=== PATIENT | female | born 1935 | race Caucasian/White ===

== ENCOUNTER 2019-03-31 11:10 | Inpatient (IN) ==
[2019-03-31 12:12] LABS: BASO# 0.06 X1000 (0.0-0.2); BASO% 0.4 % (0.0-0.8); EOS# 0.58 X1000 (0.0-0.7); EOS% 4.1 % (0.0-10.0); HEMATOCRIT 39.4 % (37.0-47.0); HEMOGLOBIN 13.2 g/dL (12.0-16.0); IMM GRAN# 0.13 X1000 (0.0-0.04); IMM GRAN% 0.9 % (0.0-0.5); LYMPH# 1.67 X1000 (1.2-3.4); LYMPH% 11.9 % (20.5-51.1); MCH 31.4 PG (27-31); MCHC 33.5 g/dL (33-37); MCV 93.6 FL (81-99); MONO# 1.24 X1000 (0.11-0.59); MONO% 8.8 % (1.7-9.3); MPV 10.2 FL (7.4-10.4); NEUT# 10.39 X1000 (1.4-6.5); NEUT% 73.9 % (42.2-75.2); PLT 266 X1000 (130-400); RBC 4.21 XMIL (4.2-5.4); RDW 14.7 % (11.5-14.5); WBC 14.07 X1000 (4.8-10.8)
--- NOTE | 2019-03-31 12:14 | Diag Imaging Result Doc PS360 ---
EXAM: CT ABDOMEN/PELVIS W/O CONTRAST 03/31/2019 HISTORY: abdominal pain TECHNIQUE: This exam was performed using automated exposure control, adjustment of mA or kV according to patient size, and/or use of iterative reconstruction technique. COMMENT: There are no previous studies available for comparison. There are bilateral pleural effusions. There is atelectasis versus pneumonia in both lower lobes. There are no apparent gallstones. There is no evidence of nephrolithiasis or hydronephrosis. The abdominal aorta is not distended. There is an abnormal fluid collection posterior to the ascending colon along the inferior lateral portion of Gerota's fascia which is apparently related to an appendiceal abscess. This measures 2.3 cm in AP dimension. The distal appendix is markedly distended. There is diverticulosis in the descending colon and sigmoid without evidence of active diverticulitis. There is a large amount of stool in the rectum. There has been right hip arthroplasty. There are degenerative disc and facet changes in the lumbar spine. IMPRESSION: Bilateral pleural effusions and bibasilar atelectasis versus pneumonia. Distended appendix and probable appendiceal abscess. The possibility of a neoplastic process in the appendix cannot be entirely excluded. Fecal impaction. Electronically signed by Evert Dietrich 03/31/2019 12:12 PM
[2019-03-31] MEDS ORDERED: MAXIPIME 2 GM in NS 100 ML IV ONE (12:33)
[2019-03-31 12:38] LABS: AGAP 14; ALBUMIN 3.3 g/dL (3.5-5.0); ALKALINE PHOSPHATASE 64 U/L (32-104); AMYLASE 44 U/L (20-200); BUN 17 mg/dL (8-22); CALCIUM 8.4 mg/dL (8.8-10.2); CHLORIDE 94 mmol/L (98-107); COSMO 270; CREATININE 0.5 mg/dL (0.5-0.9); ESTIMATED GFR > 60; GLUCOSE 105 mg/dL (70-104); GOT 25 U/L (10-30); GPT 17 U/L (10-36); LIPASE 28 U/L (13-60); POTASSIUM 3.2 mmol/L (3.5-5.1); SODIUM 134 mmol/L (136-145); TCO2 26 mmol/L (25-35); TOTAL BILIRUBIN 0.74 mg/dL (0.20-1.00); TOTAL PROTEIN 6.5 g/dL (6.3-8.3)
--- NOTE | 2019-03-31 12:50 | PROVIDER DOCUMENTATION ---
This chart was entered by Jerilyn Wright Scribe, acting as scribe for Alie Ngo MD. HPI-Abdominal Pain/GI Problem - General Chief Complaint: Abdominal Pain Stated Complaint: ABD Pain Time Seen by Provider: 03/31/19 11:34 Source: family Allergies/Adverse Reactions: Patient Allergies Allergy/AdvReac Type Severity Reaction Status Date / Time morphine AdvReac Unknown Verified 06/05/17 08:39 Home Medications: Home Medication List Medication Instructions Recorded Confirmed Last Taken Type Cholecalciferol (Vitamin D3) 2,500 unit PO DAILY 04/08/12 03/31/19 02/21/14 06:00 History [Vitamin D3] Levothyroxine [Synthroid] 1 mcg PO DAILY 04/08/12 03/31/19 02/21/14 06:00 History Donepezil [Aricept] 10 mg PO QHS 06/05/17 03/31/19 Unknown History Cyanocobalamin (Vitamin B-12) 1 cap PO DAILY 03/31/19 03/31/19 Unknown History [Vitamin B-12] Docusate Sodium [Colace] 250 mg PO BID 03/31/19 03/31/19 Unknown History Furosemide [Lasix] 1 tab PO DAILY 03/31/19 03/31/19 Unknown History Memantine HCl 1 tab PO BID 03/31/19 03/31/19 Unknown History Multivit-Min/Iron/Folic/Lutein 1 tab PO DAILY 03/31/19 03/31/19 Unknown History [Multivitamin Women 50 Plus Tab] Nitrofurantoin Monohyd/M-Cryst 1 cap PO BID 03/31/19 03/31/19 Unknown History [Nitrofurantoin Chugach-Mcr 100 mg] Pravastatin Sodium 1 tab PO QHS 03/31/19 03/31/19 Unknown History Selenium 1 tab PO DAILY 03/31/19 03/31/19 Unknown History - History of Present Illness-ABD Nature of Presenting Problems: Patient is a 83 year old female who presents to the ED via EMS with RUQ abdominal pain. Daughter states loss of appetite and lethargy. Daughter reports patient is currently on Marcobid for an UTI. Daughter denies patient having nausea and vomiting. Abdominal Pain Onset Location: reports: RUQ Pain Radiation: reports: no radiation Quality of Pain: reports: aching Severity in ED: reports: mild Onset/Duration: reports: gradual Timing: reports: still present, getting worse Activities at Onset: reports: light activity Associated Symptoms: reports: loss of appetite, other (lethargy) Bruising or Bleeding Gums?: No Similar Symptoms Previously?: Yes Recently seen or treated by another doctor?: No Review of Systems - Adult - REVIEW OF SYSTEMS - ADULT ROS:: ROS per family (daughter) Constitutional: reports: no symptoms reported. denies: chills, fever, fatique Eyes: reports: no symptoms reported Ears, Nose, Mouth & Throat: reports: no symptoms reported Cardiovascular: reports: no symptoms reported Respiratory: reports: no symptoms reported Gastrointestinal: reports: see HPI, abdominal pain (RUQ), poor appetite. de nies: nausea, vomiting Genitourinary: reports: no symptoms reported Musculoskeletal: reports: no symptoms reported Integumentary: reports: no symptoms reported Neurological: reports: see HPI, other (lethargy). denies: headache/migraines, syncope Psychiatric: reports: no symptoms reported Endocrine: reports: no symptoms reported Hematologic/Lymphatic: reports: no symptoms reported Allergic/Immunologic: reports: no symptoms reported All Other Systems: Reviewed and Negative Past History - Adult - PAST MEDICAL HISTORY-ADULT Review of Records: reports: Old Records Reviewed, Nursing Assessment Review, Medications Reviewed, Social history reviewed & non-contributory. Major Childhood Illnesses: reports: denies history Cardiovascular: reports: denies history Respiratory: reports: denies history Gastrointestinal: reports: denies history Obstetrical/Gynecological: reports: denies history Genitourinary: reports: denies history Musculoskeletal: reports: denies history Neurological: reports: dementia Psychiatric: reports: denies history Endocrine/Immune: reports: thyroid disorder Other Conditions: reports: denies history - PRIOR SURGERIES/PROCEDURES Surgical/Procedure History: reports: joint replacement (total knee and total hip), back/neck - IMMUNIZATION STATUS Childhood Immunizations: See Nurse Assessment Flu Vaccine: See Nurse Assessment - FAMILY HISTORY Family History: reviewed, not pertinent - SOCIAL HISTORY Smoking: denies Substance Use: denies Physical Exam-General - PHYSICAL EXAM-ADULT Initial Vital Signs Reviewed: Yes - CONSTITUTIONAL General Appearance: alert, no apparent distress, slow to respond. negative: obtunded - HEAD, EARS, NOSE, MOUTH & THROAT HENMT: normocephalic/atraumatic, moist mucous membranes. negative: angioedema - RESPIRATORY Respiratory: chest non-tender, lungs clear, normal breath sounds. negative: crackles, stridor, wheezing - CARDIOVASCULAR Cardiovascular: normal peripheral pulses, regular rate, rhythm. negative: tachycardia - GASTROINTESTINAL (ABDOMEN) Abdominal Exam: normal bowel sounds, soft, guarding, tenderness (RUQ). negative: distended - MUSCULOSKELETAL Extremity: normal inspection. negative: deformity, erythema, pedal edema - SKIN Integumentary: normal color, normal turgor, warm/dry. negative: diaphoresis, jaundice, rash - PSYCHIATRIC Psych/Mental Status: other (slow to respond). negative: anxious, paranoid Progress - PLAN OF CARE/RESULTS Progress/Plan/Lab Results: Vital Signs - 8 hr 03/31/19 11:23 Temperature 98.2 F Pulse Rate 92 H Respiratory Rate 18 Blood Pressure 120/66 O2 Sat by Pulse Oximetry 94 L 1232 - Tech paged Dr. Jett but Dr. Jett is in the OR and is aware of the patient. Result Diagrams: 03/31/19 11:49 03/31/19 11:49 - CT/MRI 1 CT Study: Abdomen, Pelvis Impression: See EMR Report (EXAM: CT ABDOMEN/PELVIS W/O CONTRAST 03/31/2019 HISTORY: abdominal pain TECHNIQUE: This exam was performed using automated exposure control, adjustment of mA or kV according to patient size, and/or use of iterative reconstruction technique. COMMENT: There are no previous studies available for comparison. There are bilateral pleural effusions. There is atelectasis versus pneumonia in both lower lobes. There are no apparent gallstones. There is no evidence of nephrolithiasis or hydronephrosis. The abdominal aorta is not distended. There is an abnormal fluid collection posterior to the ascending colon along the inferior lateral portion of Gerota's fascia which is apparently related to an appendiceal abscess. This measures 2.3 cm in AP dimension. The distal appendix is markedly distended. There is diverticulosis in the descending colon and sigmoid without evidence of active diverticulitis. There is a large amount of stool in the rectum. There has been right hip arthroplasty. There are degenerative disc and facet changes in the lumbar spine. IMPRESSION: Bilateral pleural effusions and bibasilar atelectasis versus pneumonia. Distended appendix and probable appendiceal abscess. The possibility of a neoplastic process in the appendix cannot be entirely excluded. Fecal impaction. Electronically signed by Evert Dietrich 03/31/2019 12:12 PM 03/31/19 1212 Interpreting Physician: Evert Dietrich MD Dictated Date/Time: 03/31/19 1209 cc: Alie Ngo MD; Cresencio Fagan MD) - CONSULTS/PCP/HOSPITALIST Notification #1 *Consult/PCP/Hospitalist*: Dr. Jett Time Discussed: 13:27 Reason/Comments: Dr. Ngo consulted with Dr. Jett about patient. Consult Disposition: other (Dr. Jett states he will contact radiology to do a percutaneous drainage of abscess. States have hospitalist admit and he will consult on patient.) #2 Consult: JUSTO Carter for Hospitalist Time Discussed: 13:39 Reason/Comments: Dr. Ngo consulted with Emma about patient. Departure - Departure Date of Disposition Decision: 03/31/19 Time of Disposition Decision: 12:48 DIAGNOSIS: Appendiceal abscess, Fecal impaction Disposition: ADMITTED INPATIENT 09 Certified Medical Emergency: Emergent Condition: Good Referrals and Follow-Ups: Cresencio Fagan MD [Primary Care Provider] - - Critical Care Note This patient required my direct & personal management of CC.: No Attestation - Physician/ TOYA Attestation Patient care was provided by Advanced Practice Provider:: No The physician spent face to face time with patient:: Yes Advanced Practice Provider documentation review:: Supervising physician onsite and consulted in the evaluation and care of this patient. The physician did have a face to face encounter with the patient. This chart was documented by the indicated scribe, (Jerilyn Wright Scribe) and accurately reflects the services I performed and decisions made by me, Alie Ngo MD, as attested by the provider's signature.
[2019-03-31 12:54] LABS: INR 1.19; PROTIME 15.3 Seconds (11.0-16.0)
[2019-03-31 12:55] LABS: PTT 33.2 Seconds (22.3-41.8)
[2019-03-31 13:15] LABS: URINE SOURCE CATH
[2019-03-31 13:24] LABS: BILIRUBIN URINE NEGATIVE (NEGATIVE); BLOOD URINE SMALL (NEGATIVE); COLOR YELLOW; GLUCOSE URINE NEGATIVE (NEGATIVE); KETONE URINE 40 mg/dL (NEGATIVE); LEUKOCYTES URINE LARGE (NEGATIVE); NITRITE URINE NEGATIVE (NEGATIVE); PH URINE 6.5; PROTEIN URINE 30 mg/dL (NEGATIVE); SP GRAVITY URINE 1.014; TURBIDITY URINE HAZY (CLEAR); UROBILINOGEN URINE NORMAL (NORMAL)
[2019-03-31 13:26] LABS: UR EPITHELIAL CELLS <10 /HPF (<10); URINE BACTERIA 1+ /HPF; URINE RBC <10 /HPF (<10); URINE WBC TNTC /HPF (<10)
[2019-03-31] MEDS ORDERED: DEMEROL IV PRN (14:59)
[2019-03-31] MEDS ORDERED: ZOFRAN IV PRN (14:59)
--- NOTE | 2019-03-31 15:20 | Diag Imaging Result Doc PS360 ---
EXAM: CT DRAIN ABDOMEN ABSCESS W/IMG 03/31/2019 HISTORY: appendiceal abscess TECHNIQUE: CT-guided abscess drainage COMMENT: The benefits and risks of the procedure including the possibility of bleeding, infection, perforation of hollow viscus or reaction to lidocaine was discussed with the patient's daughter and she agreed to the procedure. Following sterile preparation of the skin and administration 1% lidocaine to the skin and deeper soft tissues, a 10-Hebrew pigtail catheter was inserted by trocar technique into the abscess which has been previously described adjacent to the appendix, and the purulent drainage was obtained. A sample was sent to the laboratory for bacteriological studies. The catheter was secured with its cope loop and with the adhesive device to the skin. There are no immediate complications. IMPRESSION: Successful CT-guided abscess drainage. Electronically signed by Evert Dietrich 03/31/2019 3:18 PM
--- NOTE | 2019-03-31 15:46 | EKG Report ---
Test Performed on : 03/31/2019 3:36:23 PM Test Reason : pre sx Blood Pressure : / mmHG Vent. Rate : 084 BPM Atrial Rate : 084 BPM P-R Int : 182 ms QRS Dur : 088 ms QT Int : 374 ms P-R-T Axes : 056 017 069 degrees QTc Int : 441 ms Normal sinus rhythm. Nonspecific T wave abnormality Abnormal ECG When compared with ECG of 21-FEB-2014 12:08, No significant change was found Confirmed by Min Mendez MD ([id number]) on 04/01/2019 7:45:08 AM
[2019-03-31] MEDS: NS + KCL 20 MEQ 1,000 ML IV SCH (15:48)
--- NOTE | 2019-03-31 17:30 | HISTORY AND PHYSICAL ---
PRIMARY CARE PROVIDER: Dr. Cresencio Fagan GENERAL SURGEON: Dr. Jett. CHIEF COMPLAINT: Abdominal pain. HISTORY OF PRESENT ILLNESS: Ms. Cruz is an 83-year-old female who carries a past medical history of vitamin D deficiency, hypothyroidism, chronic osteoarthritis, high cholesterol, dementia, mitral valve prolapse, a spiral fracture on her right femur. She only gets up with a Ree lift to a wheelchair. Daughter at bedside reports that she has had abdominal pain to her right upper quadrant, and has been lethargic ongoing for a week, but however, increased lethargy over the past few days. She was brought to the ED, and the abdomen and pelvis CT was obtained that showed bilateral pleural effusions, bibasilar atelectasis versus pneumonia, distended appendix with a probable appendices abscess, and the possibility of a neoplastic process in the appendix could not entirely be excluded, and a fecal impaction. She then underwent a successful CT-guided abscess drainage with samples taken and sent off for studies. The catheter was secured and left in place to drain, and placed on antibiotics with cefepime as well as normal saline with KCl for a lower potassium. We will continue with further management and treatment. PAST MEDICAL HISTORY: 1. Dementia. 2. Mitral valve prolapse. 3. Right femur spiral fracture for which the patient does not walk. She gets up with a Ree lift, and sits in a wheelchair. 4. Osteoarthritis. 5. Thyroid disease. 6. Vitamin D deficiency. 7. High cholesterol. PAST SURGICAL HISTORY: 1. Back surgery. 2. Total hip and knee placement on the right. REVIEW OF SYSTEMS: Twelve-point review of systems completely negative except for those mentioned in HPI. PHYSICAL EXAMINATION: VITAL SIGNS: Temperature 98.3 degrees, heart rate 68, respirations 20, blood pressure 117/60, and O2 is 94% on room air. GENERAL: Ms. Cruz is a pleasant, 83-year-old, female who is lying in the bed in no acute distress after her procedure. HEENT: Atraumatic, normocephalic. PERRL. NECK: Supple. Trachea midline. CARDIOVASCULAR: S1, S2 appreciated. No murmurs, gallops, rubs noted. RESPIRATORY: Lungs clear bilaterally. GASTROINTESTINAL: Soft. Does not appear to be tender. Positive bowel sounds 4 quadrants. EXTREMITIES: Lower extremities negative for edema. Daughter is concerned about a right toe that was reddened, and she felt was infected last week. It is slightly reddened now, but no purulent drainage. NEUROLOGIC: She is awake, alert, and oriented to name, date of , and place. No focal deficits noted some. LABORATORY DATA: White count 14, hemoglobin and hematocrit 13 and 39, and platelet count 266,000. Sodium 134, potassium 3.2, BUN 17, and creatinine 0.5. Blood glucose is 105. Urinalysis showed 1+ bacteria. Negative for nitrates. Too numerous to count WBCs. ASSESSMENT AND PLAN: 1. Probable appendiceal abscess that has now been drained. Will be followed by Dr. Jett. Continue IV antibiotics. 2. Fecal impaction. Unsure if Dr. Jett will want her disimpacted with colonoscopy this admission or as an outpatient basis. 3. Urinary tract infection that was currently being treated. I believe with Macrodantin by her primary care doctor. We will continue with IV antibiotics. 4. Dementia. 5. Hypothyroidism. 6. Chronic osteoarthritis. 7. Right spiral fracture on her femur. The patient does get up with Ree lift and sits in a wheelchair. She is nonweightbearing. 8. Hypokalemia. We will continue with IV fluids with KCl. Recheck morning labs. 9. Further recommendation to follow physician evaluation, laboratory and diagnostic data. Dictated by JUSTO Kerns for Stephane Evans MD cc: Stephane Evans MD
[2019-03-31] MEDS ORDERED: TYLENOL PO PRN (17:44)
[2019-03-31] MEDS ORDERED: GLYCERIN ADULT PR ONE (17:51)
[2019-03-31] MEDS: FLAGYL 500 MG/NS 500 MG/100 ML IVPB IV SCH ×2 (18:04→23:38)
--- NOTE | 2019-03-31 18:36 | HISTORY AND PHYSICAL ---
ADDENDUM: Today, Ms. Cruz has been seen and evaluated. She actually went for a CT-guided periappendix abscess drainage. She came in this morning because of abdominal pain and investigations revealed an appendix abscess which was drained early on today. Now, she is feeling a lot better, but she is just feeling some chills. PHYSICAL EXAMINATION: VITAL SIGNS: Her current vitals: Blood pressure is 150/66, pulse of 90, respirations 20, temperature is 100.3 degrees. GENERAL: Ms. Cruz is an 83-year-old elderly female. She was in bed. She did not seem to be in any distress. HEENT: Mucosa is pink and moist. Anicteric and acyanotic. NECK: Supple. CHEST: Clear. CARDIOVASCULAR: Regular rate and rhythm. ABDOMEN: Soft. There is a RITIKA drain on the right lateral lower abdomen. EXTREMITIES: No pedal edema. Ms. Cruz, had a previous left hip surgery and total knee replacement. I understand she is most times bed-bound and wheelchair and recliner bound. She gets transfer by Ree lift. LABORATORY DATA: WBC is 14.077. Hemoglobin and platelet within normal range. Chemistry is also reviewed. Potassium and sodium are slightly low. Plasma lactate is normal. ASSESSMENT: 1. Possible appendiceal abscess. The patient is status post CT-guided drainage. We are waiting on the culture. 2. Sepsis, secondary to intraabdominal abscess. Cultures have been done. Abscess has been drained. The patient has been started on cefepime and vancomycin. I have added metronidazole for anaerobe coverage. 3. Hypothyroidism. 4. History of right femur spiral fracture. As I said, patient is wheelchair bound and bed-bound. Transfers with a Ree lift. 5. Fecal impaction. Will continue bowel regimen. Please refer to the details of the History and Physical which has been dictated in the chart by the CLIENT SERVER PROGRAMMER. cc: Stephane Evans MD
--- NOTE | 2019-03-31 18:46 | GENERAL SURGERY CONSULTATION ---
DATE: 03/31/2019 REASON FOR CONSULTATION: Appendicitis with abscess. HISTORY OF PRESENT ILLNESS: This is an 83-year-old female with chronic dementia who lives at home and has a caregiver who has noted increasing lethargy and 1 episode of fever last week. She has also had some tenderness on the right side of her abdomen that has become more prominent over the last few days. Initially, which initially she was thought to have a UTI. She was treated with antibiotics. The fever subsided last week, but her tenderness did not improve, so she was brought to the hospital for evaluation in the emergency room. The workup has included a CBC with to me the workup has included an CT scan, which shows a distended appendix with a periappendiceal abscess which is somewhat retrocecal over Gerota's fascia. The distal appendix is very distended. There is also bilateral pleural effusions and basilar atelectasis versus pneumonia. There is also fecal impaction. PAST MEDICAL HISTORY: Dementia, mitral valve prolapse, chronic UTIs, osteoarthritis, degenerative joint disease, history of T12 compression fracture, hypothyroidism. ALLERGIES: Morphine. PAST SURGICAL HISTORY: No abdominal surgery. SOCIAL HISTORY: Negative for tobacco, alcohol or illicit drug use. HOME MEDICATIONS: Vitamin D3, Synthroid, Aricept, vitamin B12, Colace, Lasix, memantine, nitrofurantoin, pravastatin, selenium. FAMILY HISTORY: Reviewed and noncontributory. REVIEW OF SYSTEMS: Ten systems reviewed and are negative except as noted above. In addition, she has had loss of appetite. PHYSICAL EXAMINATION: Vital Signs: Temperature 98.2 degrees, pulse 80s to 90s, blood pressure 137/69, O2 saturation 96%. General: Well-developed elderly female in no distress who looks her stated. HEENT: Normocephalic, atraumatic. Extraocular muscles intact. Pupils equal, round, reactive to light. Sclerae anicteric. Moist mucous membranes. Neck: Supple. No thyromegaly. CV: Regular rate and rhythm. Respiratory: Bilateral breath sounds. No work of breathing. Gastrointestinal: Soft, nondistended. No organomegaly or mass. She is tender in the right lower quadrant. No rebound. She does have some guarding if you push on her right lower quadrant. Extremities: No clubbing, cyanosis, or edema. Skin: Warm and dry. No rash. Musculoskeletal: Moves all extremities equally and well. LABORATORY: White blood cell count 14,000. Hemoglobin 13, hematocrit 39. Electrolytes reviewed and are unremarkable. Urinalysis does show leukocytes and 1+ bacteria but negative nitrite. IMAGING: As described in HPI. ASSESSMENT AND PLAN: An 83-year-old female with acute appendicitis with focal contained abscess. The abscess is somewhat retroperitoneal in nature. She does not have free air. She does not appear to have generalized peritonitis. Given her age, comorbidities, and the hemodynamic stability, I would favor initial conservative treatment with percutaneous drainage and IV antibiotics. If she responds to this, then we could discharge her home in a few days on oral antibiotics with follow up my office. We would plan a future colonoscopy followed by interval appendectomy in 6 to 8 weeks. I discussed this with her and her family. They understand and agree to proceed in this manner. cc: Hayden Jett MD
[2019-04-01] MEDS: MAXIPIME 2 GM in NS 100 ML IV SCH ×2 (01:05→14:30)
[2019-04-01] MEDS: NS + KCL 20 MEQ 1,000 ML IV SCH ×2 (01:05→11:54)
--- NOTE | 2019-04-01 06:12 | GENERAL SURGERY PROGRESS NOTE ---
DATE: 04/01/2019 SUBJECTIVE: The patient denies abdominal pain, nausea or vomiting. OBJECTIVE: Vital Signs: She is afebrile. Vital signs are stable. General: She is awake, alert and oriented x3. No acute distress. GI: Soft. Focally tender in the right lower quadrant. No generalized peritoneal irritation. Nondistended. LABORATORY DATA: Pending. ASSESSMENT AND PLAN: An 83-year-old female with acute appendicitis and periappendiceal abscess. She is hemodynamically stable. We are treating this conservatively. She is status post percutaneous drainage. She is on IV antibiotics. We are awaiting results of the culture. If she shows improvement over the next couple of days I anticipate discharge home on oral antibiotics and follow up with me as an outpatient. cc: Hayden Jett MD
[2019-04-01] MEDS: FLAGYL 500 MG/NS 500 MG/100 ML IVPB IV SCH ×3 (06:45→17:41)
[2019-04-01] MEDS: SYNTHROID PO SCH ×2 (06:46→08:45)
[2019-04-01 07:34] LABS: BASO# 0.04 X1000 (0.0-0.2); BASO% 0.5 % (0.0-0.8); EOS# 0.54 X1000 (0.0-0.7); EOS% 6.1 % (0.0-10.0); HEMATOCRIT 34.5 % (37.0-47.0); HEMOGLOBIN 11.4 g/dL (12.0-16.0); IMM GRAN% 1.1 % (0.0-0.5); LYMPH# 0.71 X1000 (1.2-3.4); LYMPH% 8.1 % (20.5-51.1); MCH 31.3 PG (27-31); MCV 94.8 FL (81-99); MONO# 0.54 X1000 (0.11-0.59); MONO% 6.1 % (1.7-9.3); MPV 10.7 FL (7.4-10.4); NEUT# 6.86 X1000 (1.4-6.5); NEUT% 78.1 % (42.2-75.2); PLT 237 X1000 (130-400); RBC 3.64 XMIL (4.2-5.4); RDW 14.8 % (11.5-14.5); WBC 8.79 X1000 (4.8-10.8)
[2019-04-01 07:57] LABS: AGAP 12; ALB/GLOB RATIO 0.9; ALBUMIN 2.6 g/dL (3.5-5.0); ALKALINE PHOSPHATASE 56 U/L (32-104); BUN 13 mg/dL (8-22); CALCIUM 8.2 mg/dL (8.8-10.2); CHLORIDE 100 mmol/L (98-107); COSMO 270; CREATININE 0.6 mg/dL (0.5-0.9); ESTIMATED GFR > 60; GLUCOSE 91 mg/dL (70-104); GOT 21 U/L (10-30); GPT 15 U/L (10-36); MAGNESIUM 1.7 mg/dL (1.5-2.7); POTASSIUM 3.5 mmol/L (3.5-5.1); SODIUM 135 mmol/L (136-145); TCO2 23 mmol/L (25-35); TOTAL BILIRUBIN 0.38 mg/dL (0.20-1.00); TOTAL PROTEIN 5.6 g/dL (6.3-8.3)
[2019-04-01 08:07] LABS: BANDS 3 % (0-1); EOS 2 % (1-10); LARGE PLATELETS OCCASIONAL; LYMPHS 4 % (21-51); MONO 3 % (1-9); SEGS 88 % (42-75)
[2019-04-01] MEDS: MIRALAX PO SCH (08:47)
[2019-04-01] MEDS ORDERED: SYNTHROID PO SCH (09:00)
--- NOTE | 2019-04-01 16:29 | PROGRESS NOTE ---
DATE: 04/01/2019 SUBJECTIVE: This morning Ms. Cruz referred to be doing a whole lot better. There were about 4 different family members at the bedside at the time of the encounter. OBJECTIVE: Vital signs: Blood pressure is 122/56, pulse of 91, respirations 16, temperature is 98.4 degrees. General: Ms. Cruz is an 83-year-old female. She was in bed, not seemingly distress. HEENT: Mucosa was pink. Still slightly dry. Anicteric. Acyanotic. Neck: Supple. Chest: Clear to auscultation. Cardiovascular: Regular rate and rhythm. Abdomen: Soft. There is a RITIKA drain to the right lateral abdomen. FOOD SERVICE ORDER CLERK: Patient was awake, alert, and oriented. LABORATORY DATA: CBC shows mild normocytic anemia. White cell count has normalized. Chemistry is normal. So far, urine culture is showing gram-negative robin. The abdomen is also showing gram- negative robin. MEDICATIONS: Have been reviewed. She continues to be on cefepime and metronidazole for now. ASSESSMENT: 1. Sepsis secondary to intra-abdominal abscess. Patient is status post I D. Blood cultures showing gram-negative robin from the cultures. We are pending the ID and sensitivity. 2. Possible appendiceal abscess, status post drain. 3. Gram-negative robin urinary tract infection. Patient is on antimicrobial coverage. 4. Hypothyroidism. 5. History of right femur spiral fracture. The patient is currently wheelchair bound and bed bound, uses a Ree lift for transfers. Fecal impaction. We will continue with bowel regimen. PLAN: So in general, Ms. Cruz is hemodynamically stable. She has been afebrile for today. She is more alert and more communicative. She denies any chills. The culture from the urine and the abscess is showing gram-negative orbin. We are pending the ID and sensitivity to tailor the antibiotics accordingly. cc: Stephane Evans MD
[2019-04-02] MEDS: FLAGYL 500 MG/NS 500 MG/100 ML IVPB IV SCH ×2 (00:22→06:49)
[2019-04-02] MEDS: NS + KCL 20 MEQ 1,000 ML IV SCH ×4 (00:22→23:57)
[2019-04-02] MEDS: MAXIPIME 2 GM in NS 100 ML IV SCH ×2 (01:24→19:32)
[2019-04-02 06:30] LABS: HEMATOCRIT 35.3 % (37.0-47.0); HEMOGLOBIN 11.7 g/dL (12.0-16.0); MCH 31.6 PG (27-31); MCHC 33.1 g/dL (33-37); MCV 95.4 FL (81-99); MPV 10.2 FL (7.4-10.4); RBC 3.7 XMIL (4.2-5.4); RDW 14.8 % (11.5-14.5); WBC 8.91 X1000 (4.8-10.8)
[2019-04-02 06:54] LABS: AGAP 13; ALBUMIN 2.6 g/dL (3.5-5.0); BUN 9 mg/dL (8-22); CALCIUM 8.4 mg/dL (8.8-10.2); CHLORIDE 103 mmol/L (98-107); COSMO 276; CREATININE 0.4 mg/dL (0.5-0.9); ESTIMATED GFR > 60; GLUCOSE 93 mg/dL (70-104); PHOSPHORUS 2.7 mg/dL (2.7-4.5); POTASSIUM 3.5 mmol/L (3.5-5.1); SODIUM 139 mmol/L (136-145); TCO2 23 mmol/L (25-35)
[2019-04-02] MEDS: MIRALAX PO SCH (08:54)
[2019-04-02] MEDS: SYNTHROID PO SCH (08:59)
--- NOTE | 2019-04-02 14:57 | Diag Imaging Result Doc PS360 ---
CT ABD/PELVIS W/IV CONT ONLY - 04/02/2019 INDICATION: abdomen pain, recently drained abcess COMPARISON: 03/31/2019 FINDINGS: There is cardiomegaly. There are trace bilateral pleural effusions. There is some mild atelectasis in the lung bases. There is a pigtail catheter in the right lower quadrant in the region of the appendiceal tip. Essentially all of the drainable fluid has been drained. There is still some inflammatory edema here. No free air or free fluid. No other abnormalities. IMPRESSION: Successful drainage of the tiny right lower quadrant abscess. This exam was performed using automated exposure control, adjustment of mA or kV according to patient size, and/or use of iterative reconstruction technique Electronically signed by Shahram Sarabia 04/02/2019 2:55 PM
[2019-04-02] MEDS ORDERED: NORCO-7.5 PO PRN (14:59)
[2019-04-02] MEDS ORDERED: LACTULOSE PO PRN (15:10)
--- NOTE | 2019-04-02 15:55 | PROGRESS NOTE ---
DATE: 04/02/2019 SUBJECTIVE: This morning, Ms. Cruz referred to be hurting more in the abdomen. The healthcare provider and the were all at the bedside and they were very concerned about her abdominal pain. OBJECTIVE: Vital signs: Blood pressure is 132/56, pulse of 90, respirations 24, temperature is 98 degrees. The patient was saturating 97% on room air. General: Ms. Cruz is an 83-year- old female. She is in bed, in no distress. HEENT: Mucosa was pink and moist. Anicteric. Acyanotic. Neck: Supple. Chest: Good air entry bilateral. There was no crepitations. No rhonchi. Cardiovascular: Regular rate and rhythm. No murmurs, no rubs, no gallops Gastrointestinal: Abdomen soft, minimally tender around the right flank and lower abdomen, but there was no guarding, no rebound. LABORATORY DATA: WBC is normal. There is some mild normocytic anemia. Chemistry is completely within normal range. The patient's albumin is 2.6. So far, the abdominal abscess culture shows no anaerobes. But there is Klebsiella oxytoca which is pansensitive. The urine has also grown Proteus mirabilis, which is pansensitive. Blood cultures have been 48 hours negative. Because of the abdominal pain, I did order a CT scan of the abdomen. At the time of the dictation the report is out and it shows that there is a successful drain of the tiny right lower quadrant abscess. There is still some inflammatory edema there, but otherwise the abscess is completely drained. ASSESSMENT: 1. Severe sepsis on admission secondary to intra-abdominal abscess. The patient is status post CT-guided drain. The RITIKA drain is still in place, minimally has anything and on follow-up CT scan is completely gone. 2. Intra-abdominal abscess, questionable for appendiceal abscess. The patient has a drain. Culture shows Klebsiella oxytoca, which is sensitive to oral Levaquin. We have transitioned the patient to that. 3. Proteus mirabilis urinary tract infection. This is also sensitive to the Levaquin. 4. Hypothyroidism. Patient is on supplements. 5. Severe constipation with fecal impaction. We will continue with bowel regimen. 6. History of right femur spiral fracture. The patient is wheelchair and bed bound. Uses a Ree lift for transfers. In general, I think Ms. Cruz is doing a lot better. Her white cell count has normalized. She has not had any more fever and her cultures have come back pathogens that are sensitive to oral antibiotics. There was a lot of concern this morning about abdominal pain which CT scan has shown almost resolution of the abscess. We are going to switch Ms. Cruz to oral Levaquin. I have also discontinue the metronidazole since anaerobes were negative. I think Ms. rCuz will need to be on antibiotics for 14 days and then eventually follow up with both GI and Surgery as outpatient. We will re-evaluate Ms. Cruz's pain tomorrow and see how it is. She is a potential discharge tomorrow. cc: Stephane Evans MD
[2019-04-02] MEDS: LEVAQUIN PO SCH (16:02)
--- NOTE | 2019-04-02 18:36 | GENERAL SURGERY PROGRESS NOTE ---
DATE: 04/02/2019 SUBJECTIVE: The patient feels a lot better. She denies abdominal pain right now. She did hurt earlier today, but felt better after Demerol. No nausea or vomiting. She ate a good lunch. OBJECTIVE: Vital Signs: She is afebrile. Vital signs are stable. General: She is awake, alert, oriented x3. No acute distress. LABORATORY: White blood cell count 8.9, electrolytes reviewed and unremarkable. ASSESSMENT AND PLAN: An 83-year-old female with probable appendicitis and periappendiceal abscess. She seems to be responding to our management, which has included IV antibiotics and percutaneous CT-guided drainage. The family is uncomfortable going home at this time given her age, mobility issues, and a new home health nurse coming out this weekend. A repeat CT scan was done today. The report is pending. I will plan continued antibiotics over the weekend removal of the drain on Friday and discharge home with Levaquin and Flagyl for another week. We are then planning future colonoscopy and appendectomy in about 6 weeks. cc: Hayden Jett MD
[2019-04-03] MEDS: NS + KCL 20 MEQ 1,000 ML IV SCH ×2 (04:56→13:24)
[2019-04-03] MEDS: SYNTHROID PO SCH (06:46)
--- NOTE | 2019-04-03 06:47 | GENERAL SURGERY PROGRESS NOTE ---
DATE: 04/03/2019 SUBJECTIVE: Patient seems to be doing okay. OBJECTIVE: Vital Signs: Patient is currently afebrile. Her vital signs stable. General: No acute distress. HEENT: Normocephalic, atraumatic. Pupils equal, round, reactive to light. Mucous membranes moist. Oropharynx benign. Neck: Supple. Trachea midline. Cardiovascular: Regular rate and rhythm. Lungs: Grossly clear. Abdomen: Soft, some mild discomfort in left lower quadrant, but no real peritoneal signs. Drain in place with serosanguineous output. Extremities: Moves all extremities. Neurologic: Grossly intact. Skin: No signs of jaundice. Vascular: All extremities perfused. LABORATORY: Reviewed from yesterday. White blood cell count did decrease. Wound culture does show Klebsiella, which is sensitive to Levaquin. ASSESSMENT/PLAN: 83-year-old female with perforated appendicitis with abscess. #1 perforated appendicitis with abscess. At this time, continue CT-guided drainage. Continue antibiotics and Dr. Jett to return to see the patient back on Friday and consider drain removal. We will continue to follow while she is in the hospital. cc: Ethan Cabrera MD
--- NOTE | 2019-04-03 07:25 | PROGRESS NOTE ---
DATE: 04/03/2019 SUBJECTIVE: This morning Ms. Cruz refers to be feeling a whole lot better. Abdominal pain has significantly improved. She denies any abdominal pain at this point. OBJECTIVE: Vital signs: Blood pressure is 155/82, pulse of 94, respiration is 24, temperature 98.4 degrees. Patient is saturating 92%. General: Ms. Cruz is an 83-year-old elderly female. She is in bed, no distress. HEENT: Mucosa is pink and moist. Anicteric. Acyanotic. Neck: Supple. Chest: Good air entry bilateral. There were no crepitations, no rhonchi. Cardiovascular: Regular rate and rhythm. No murmurs, no rubs, no gallops. GI: Abdomen is soft, nontender. The RITIKA drain is still in place. 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 LABORATORY DATA: None at the time of dictation. CURRENT MEDICATIONS: Have all been reviewed. She is still on levofloxacin p.o. however patient has a total antibiotic days of 3 days on antibiotics. Ms. Cruz has remained afebrile since the hospital course. A CT scan which was done yesterday seems to suggest that the appendiceal abscess has essentially been completely drained. So our plan is we are continue with the current antimicrobial coverage. ASSESSMENT: 1. Severe sepsis on presentation secondary to intra-abdominal abscess. This has been successfully drained. A follow-up CT scan seems to suggest a complete drainage. Patient still has the pigtail catheter in place. Will be waiting for surgery to evaluate and possibly retrieve this. 2. Intra-abdominal abscess, questionable for appendiceal abscess. This has been drained, culture growing Klebsiella oxytoca which is sensitive to Levaquin. This has been transitioned to oral. 3. Proteus mirabilis urinary tract infection. We will continue with the antibiotics. 4. Hypothyroidism. Patient is on levothyroxine supplementation. 5. Severe constipation with fecal impaction on presentation, improved. 6. History of right femur spiral fracture. The patient also had right hip surgery and right knee and she has been bed-bound and wheelchair-bound since for a very long time now. She uses a Ree lift for transfers. PLAN: In general, I think Ms. Cruz is doing well. She has remained afebrile since the hospital course, vitals and hemodynamically stable. We are going to continue with the current antimicrobial. We will be waiting on surgery to evaluate her today and decide when the RITIKA drain can be removed. cc: Stephane Evans MD
[2019-04-03] MEDS: MIRALAX PO SCH (11:12)
[2019-04-03] MEDS: LEVAQUIN PO SCH (11:13)
[2019-04-03] MEDS: FLAGYL PO SCH ×3 (11:15→21:42)
[2019-04-04] MEDS: SYNTHROID PO SCH ×2 (03:40→06:00)
[2019-04-04] MEDS: FLAGYL PO SCH ×4 (03:40→21:00)
--- NOTE | 2019-04-04 07:28 | GENERAL SURGERY PROGRESS NOTE ---
DATE: 04/04/2019 SUBJECTIVE: Patient doing well. No major issues. OBJECTIVE: Vital Signs: The patient is currently afebrile. Her vital signs are stable. General: No acute distress. HEENT: Normocephalic, atraumatic. Pupils equal, round, reactive to light. Mucous membranes moist. Oropharynx benign. Neck: Supple. Trachea midline. Cardiovascular: Regular rate and rhythm. Lungs: Grossly clear. Abdomen: Soft. Minimal discomfort in the left lower quadrant. No real peritoneal signs. Drain in place with sanguinous output. Extremities: Moves all extremities. Neurologic: Grossly intact. Skin: No signs of jaundice. Vascular: All extremities perfused. LABORATORY DATA: None this morning as of yet. ASSESSMENT AND PLAN: An 83-year-old with perforated appendicitis with abscess. Perforated appendicitis with abscess. At this time, continue drain. Continue antibiotics. Dr. Jett will see back on Friday for potential drain removal, but otherwise she seems to be improving. cc: Ethan Cabrera MD
[2019-04-04] MEDS: MIRALAX PO SCH (09:10)
[2019-04-04] MEDS: LEVAQUIN PO SCH (09:11)
--- NOTE | 2019-04-04 14:44 | PROGRESS NOTE ---
DATE: 04/04/2019 SUBJECTIVE: This morning, Ms. Cruz referred to be doing a lot better. The was at the bedside at the time of the encounter. No new complaints. She has been eating well and has not had any fever. OBJECTIVE: Vital Signs: Blood pressure is 124/73, pulse of 107, respirations are 16, temperature is 98.6 degrees, the patient is saturating 96% on room air. General Examination: Ms. Cruz is an 83-year-old, female. She is in bed. No distress. HEENT: Mucosa is pink and moist. Anicteric. Acyanotic. Neck: Supple. Chest: Clear to auscultation. No crepitations. Cardiovascular: Regular rate and rhythm. GI: Abdomen is soft, nontender. There is a RITIKA drain in place at the right side. CLIENT EXPERIENCE CONSULTANT: The patient is awake and alert. Laboratory Data: None for today. The patient's blood cultures so far have been 48 hours negative. The abdominal cultures came back positive for both Klebsiella oxytoca and Bacteroides fragilis. ASSESSMENT: 1. Severe sepsis on presentation secondary to intraabdominal abscess. The patient is status post CT-guided abscess drain. Cultures are positive for Klebsiella oxytoca and Bacteroides fragilis. She has been on adequate antimicrobial therapy. 2. Intraabdominal abscess, questionable for appendiceal abscess, status post CT-guided drainage. 3. Proteus mirabilis urinary tract infection. The patient is on antibiotics. 4. Hypothyroidism. We will continue with the supplement. 5. Severe constipation with fecal impaction on presentation, improved. 6. History of right femoral spiral fracture and other orthopedic intervention on the right hip and the right knee. The patient is currently wheelchair-bound for mobility, a Ree lift for transfers. PLAN: In general, I think Ms. Cruz is doing a lot better, hemodynamically stable. Blood cultures negative. The cultures from the urine and abdomen have been noted. The patient will be on p.o. Levaquin and metronidazole for a total of 14 days. She will also follow up with Dr. Jett on an outpatient basis for later appendix removal and a colonoscopy. cc: Stephane Evans MD
[2019-04-05] MEDS: SYNTHROID PO SCH ×2 (01:37→06:40)
[2019-04-05] MEDS: FLAGYL PO SCH ×2 (01:37→08:12)
[2019-04-05] MEDS: MIRALAX PO SCH (08:12)
[2019-04-05] MEDS: LEVAQUIN PO SCH (08:12)
[2019-04-05 12:00] VITALS: BP 140/75
--- NOTE | 2019-04-05 13:57 | GENERAL SURGERY PROGRESS NOTE ---
DATE: 04/05/2019 SUBJECTIVE: The patient is doing well. Mild intermittent right-sided abdominal pain. She is eating some. No vomiting. She has had several bowel movements. OBJECTIVE: Vital Signs: She is afebrile. Her vital signs are stable. General: She is awake, alert, oriented x3. No acute distress. Gastrointestinal: Soft, nondistended. Mildly tender in the right side. No rebound or guarding. Drain has no output. LABORATORY DATA: White blood cell count 8.9 as of last week. ASSESSMENT AND PLAN: An 83-year-old female with presumed acute appendicitis and periappendiceal abscess, status post percutaneous drainage. She has responded to conservative management. We will allow her to go home today on Levaquin and Flagyl to follow up with me in 1 week, and we are planning a future colonoscopy and appendectomy in about 6 weeks, and I have removed the drain today prior to discharge. cc: Hayden Jett MD
--- NOTE | 2019-04-06 06:03 | DISCHARGE SUMMARY ---
ADMISSION DATE: 03/31/2019 DISCHARGE DATE: 04/05/2019 DISPOSITION: Home. FOLLOW-UP: 1. Dr. Rylan Dupont. 2. Dr. Jett CONSULTATION DURING ADMISSION: Surgery was consulted. Patient was seen by Dr. Jett and followed up by Dr. Cabrera. INVASIVE PROCEDURE DONE DURING ADMISSION: A CT-guided vinayak appendiceal abscess drainage was done by IR. ADMISSION DIAGNOSES: 1. Probable appendiceal abscess. 2. Fecal impaction. 3. Hypothyroidism. 4. Chronic osteoarthritis. 5. Hypokalemia. DIAGNOSES AT TIME OF DISCHARGE: 1. Severe sepsis on presentation secondary to intra-abdominal abscess. 2. Acute appendicitis complicated with periappendiceal abscess. The patient is status post CT- guided abscess drainage. Culture was positive for Klebsiella oxytoca and Bacteroides. 3. Proteus mirabilis urinary tract infection. 4. Hypothyroidism. 5. Severe constipation with fecal impaction on presentation. 6. History of right femoral spiral fracture and other orthopedic intervention on the right hip and knee. The patient is currently wheelchair-bound for mobility and Ree lift for transfers. 7. History of Alzheimer's dementia. DISCHARGE MEDICATIONS: 1. Cholecalciferol. 2. Levothyroxine 112 mcg p.o. daily. 3. Donepezil 10 mg p.o. at bedtime. 4. Furosemide 40 mg p.o. daily. 5. Memantine 10 mg b.i.d. 6. Multivitamin 1 tablet daily. 7. Pravastatin 80 mg p.o. daily. 8. Selenium 200 mcg p.o. daily. 9. Cyanocobalamin 1000 mcg p.o. daily. 10. Colace 250 p.o. b.i.d. 11. Metronidazole 500 p.o. q.6. 12. MiraLAX. 13. Levaquin 500 p.o. daily. 14. Probiotic 1 tablet p.o. daily. PRESENTING COMPLAINT: Abdominal pain. HISTORY OF PRESENTING COMPLAINT: Mr. Cruz is an 83-year-old female with a history of dementia and spiral fracture of the right side. The patient is bed-bound, and a Ree lift for transfers, and also hypothyroidism. She came to the emergency department because of being lethargic for some time associated with abdominal pain. Upon presenting, she was evaluated. Initially, she was slightly hypoxemic. A CAT scan which was done in the ER did show distended appendix and probable appendiceal mass. Her lab work also did reveal elevated white cell count. She was subsequently admitted for further medical care. HOSPITAL COURSE: Ms. Cruz was admitted to the medical floor. She did have a couple of episodes of fever and chills. However, blood pressure remained fairly normal. She was fluid resuscitated. She did not need any pressors. She was started on broad-spectrum IV antibiotics. Surgery was consulted. Patient was seen by Dr. Jett. Mr. Cruz was recommended by Surgery to have a CT-guided drainage of the appendiceal abscess which was successfully done. Culture of the abscess came back positive for Klebsiella oxytoca and Bacteroides fragilis. Her urine also was positive for Proteus mirabilis. Ms. Cruz's antibiotics were tailored accordingly. It was switched to oral Levaquin and metronidazole when she became more stable. Today, she refers to feel a whole lot better. She has been afebrile since after the first day of her hospital stay. Her blood pressures have also been stable. Abdominal pain has resolved. She has been tolerating her diet, and she has been having regular bowel movements. We think Ms. Cruz is stable for discharge. She has been evaluated today by Surgery. The RITIKA drain has been removed, and she will follow up with Dr. Jett in about a week. She is going to continue p.o. antibiotics for a total of 14 days antimicrobial therapy. All the discharge instructions have been discussed with her and the , and the interactive art director all at the bedside at the time of the encounter. TIME SPENT: 40 minutes. cc: MD Cresencio Leigh MD Jason R. Seale, MD
== END 2019-04-05 13:45 | disposition home or self-care (01) | DRG 871 ==
LOC: SUPCPDRO → ED 11:10 → EDIPHOLD 14:18 → 4N 16:57
PROVIDERS: ATTEND Internal Medicine

== ENCOUNTER 2019-06-01 10:42 | Day surgery (SDC) ==
[~2019-06-01 10:42] MED LIST: DIPRIVAN 1% ONE; QUELICIN (DOSE) ONE; XYLOCAINE-MPF 2% ONE
[2019-06-01] MEDS ORDERED: LR 1,000 ML ONE ×2 (11:23→11:41)
[2019-06-01] MEDS ORDERED: KEFZOL 1 GM/D5W 1 GM/50 ML IVPB ONE (11:23)
[2019-06-01] MEDS ORDERED: SENSORCAINE 0.5%-EPI 1:200,000 ONE (11:41)
[2019-06-01 11:59] LABS: HEMATOCRIT 43.7 % (37.0-47.0); HEMOGLOBIN 14.6 g/dL (12.0-16.0); MCHC 33.4 g/dL (33-37); MCV 95.8 FL (81-99); MPV 10.2 FL (7.4-10.4); RBC 4.56 XMIL (4.2-5.4); RDW 15.3 % (11.5-14.5); WBC 6.48 X1000 (4.8-10.8)
[2019-06-01 12:14] LABS: AGAP 13; BUN 11 mg/dL (8-22); CALCIUM 9.5 mg/dL (8.8-10.2); CHLORIDE 100 mmol/L (98-107); COSMO 277; CREATININE 0.6 mg/dL (0.5-0.9); ESTIMATED GFR > 60; GLUCOSE 104 mg/dL (70-104); SODIUM 139 mmol/L (136-145); TCO2 26 mmol/L (25-35)
[2019-06-01] MEDS ORDERED: DECADRON ONE (12:31)
[2019-06-01] MEDS ORDERED: ZOFRAN ONE (12:31)
[2019-06-01] MEDS ORDERED: EPHEDRINE ONE (12:31)
[2019-06-01] MEDS ORDERED: ROBINUL ONE ×2 (13:06→13:13)
[2019-06-01] MEDS ORDERED: NEOSTIGMINE ONE ×3 (13:06→13:14)
[2019-06-01] MEDS ORDERED: BREVIBLOC ONE (13:20)
[2019-06-01] MEDS: DILAUDID ONE ×2 (13:54→13:57)
[2019-06-01] MEDS ORDERED: ULTRAM PO PRN (14:17)
--- NOTE | 2019-06-01 14:59 | OPERATIVE NOTE ---
PROCEDURE DATE: 06/01/2019 PREOPERATIVE DIAGNOSIS: History of ruptured appendicitis. POSTOPERATIVE DIAGNOSIS: Ruptured appendicitis. PROCEDURE: Laparoscopic appendectomy. SURGEON: Rusty Milan ANESTHESIA: General ESTIMATED BLOOD LOSS: 10 mL. COMPLICATIONS: None apparent. SPECIMENS: Appendix. FINDINGS: The appendix had a contained perforation in the mid body of the appendix. There was no signs of any mass lesion. TECHNIQUE: The patient was brought to the operating room and placed supine on the table. General anesthesia was induced. A Bojorquez catheter was placed. She was prepped and draped in the usual sterile fashion. 0.25% Marcaine with epinephrine was used to anesthetize our incisions. A 12 mm incision was placed above the umbilicus. The fascia was exposed and incised sharply. Entry into the peritoneal cavity was obtained under direct vision with the Optiview device. Pneumoperitoneum was established. The camera was inserted. There was no evidence of injury to underlying structures. She was placed in Trendelenburg and left rotation. Two 5 mm incision ports were placed under direct vision, 1 in the left lower quadrant and 1 in the suprapubic midline. The appendix was found in the right lower quadrant lying in the pericolic gutter displaying the cecum medially. I began freeing the appendix off the lateral sidewall with hook cautery and blunt dissection. I then created a window through the mesentery at the base of the appendix with the [place] forceps and divided the appendix with an Endo-ALICIA stapler. The rest of the appendiceal mesentery and inflammatory attachments were taken down with the LigaSure device and hook cautery until it was completely freed up from the retroperitoneum and the mesentery of the ascending colon. There was a small area of contained perforation with minimal pus oozing out. This was suctioned out. There was very minimal contamination. Once the appendix was completely dissected free, it was placed in an EndoCatch bag. I then irrigated with saline and suctioned out the irrigation and old blood. There was no signs of any ongoing bleeding or any remaining pus. The bag and appendix were brought out through the umbilical port site. The abdomen was desufflated. The ports were removed. The umbilical fascia was closed with 0 Vicryl. The skin was closed with 4-0 subcuticular Biosyn and Steri-Strips. There were no apparent complications. She was awakened in stable condition and transferred to the recovery room. cc: Hayden Jett MD
[2019-06-01 17:40] LABS: URINE SOURCE CATH
[2019-06-01 17:45] LABS: BILIRUBIN URINE NEGATIVE (NEGATIVE); BLOOD URINE SMALL (NEGATIVE); COLOR YELLOW; GLUCOSE URINE NEGATIVE (NEGATIVE); KETONE URINE 10 mg/dL (NEGATIVE); LEUKOCYTES URINE NEGATIVE (NEGATIVE); NITRITE URINE NEGATIVE (NEGATIVE); PROTEIN URINE TRACE mg/dL (NEGATIVE); TURBIDITY URINE CLEAR (CLEAR); UROBILINOGEN URINE NORMAL (NORMAL)
[2019-06-01 17:47] LABS: UR EPITHELIAL CELLS <10 /HPF (<10); URINE BACTERIA NEGATIVE /HPF; URINE WBC <10 /HPF (<10)
[2019-06-01] MEDS ORDERED: CALMOSEPTINE OINTMENT TOP PRN (19:03)
[2019-06-01] MEDS ORDERED: PRAVACHOL PO SCH (21:00)
[2019-06-01] MEDS ORDERED: ARICEPT PO SCH (21:00)
[2019-06-01] MEDS: PERIDEX MT SCH (22:04)
[2019-06-01] MEDS: COLACE PO SCH (22:04)
[2019-06-01] MEDS: NAMENDA PO SCH (22:04)
[2019-06-01] MEDS: BUSPAR PO SCH (22:05)
[2019-06-02] MEDS ORDERED: SYNTHROID PO SCH (07:00)
[2019-06-02 08:19] VITALS: BP 123/55
[2019-06-02] MEDS: PERIDEX MT SCH (08:58)
[2019-06-02] MEDS: BUSPAR PO SCH (08:58)
[2019-06-02] MEDS: COLACE PO SCH (08:58)
[2019-06-02] MEDS: NAMENDA PO SCH (08:58)
[2019-06-02] MEDS ORDERED: VITAMIN B-12 PO SCH (09:00)
[2019-06-02] MEDS ORDERED: PATIENT'S OWN MED PO SCH (09:00)
[2019-06-02] MEDS ORDERED: LASIX PO SCH (09:00)
[2019-06-02] MEDS ORDERED: VITAMIN D PO SCH (09:00)
--- NOTE | 2019-06-02 09:26 | GENERAL SURGERY PROGRESS NOTE ---
DATE: 06/02/2019 SUBJECTIVE: The patient is doing well. No severe pain, nausea, vomiting, or other complaints overnight. She is tolerating her liquids so far. OBJECTIVE: She is afebrile. Vital signs are stable. General: She is awake, alert, and oriented x3. No acute distress. Gastrointestinal: Soft, nondistended. Appropriately tender. Incision is clean, dry, and intact. Labs: None. ASSESSMENT AND PLAN: An 83-year-old female postoperative day 1 laparoscopic appendectomy. She is doing well. She will be discharged home today. Instructions were given. cc: Hayden Jett MD
== END 2019-06-02 11:49 | disposition home or self-care (01) ==
LOC: PAT 10:42 → 4N 10:42 → EDSTATUS 12:00 → MERGE 12:00 → PAT 06-02 11:49
PROVIDERS: ATTEND Surgery